=== PATIENT | male | born 1965 ===

== ENCOUNTER 2022-03-18 08:07 | Observation (INO) ==
[2022-03-18] MEDS ORDERED: MoRPHine SULFATE 4 MG/ML 1 ML CARP\\VIAL IV STA ×2 (08:34→15:29)
[2022-03-18] MEDS ORDERED: ONDANSETRON INJ 2 MG/ML 2 ML VIAL IV STA (08:34)
--- NOTE | 2022-03-18 08:36 | Emergency Department Note ---
Impression & Plan Chest pain ADMIT ED Provider Note HPI: The patient is a 56-year-old gentleman with history of coronary artery disease, status post quadruple bypass 3 years ago at a medical facility in [place], presents the emergency department today with chief complaint of chest pain. Patient states that since about 630 last evening he had some substernal chest discomfort that waxed and waned in severity. Patient states that he had this pain throughout most of the night and was having difficulty sleeping. Patient states that he therefore presented to the emergency room this morning for further assessment. On arrival to the ED the patient is hypertensive, does complain of some substernal chest pain, he is otherwise hemodynamically stable, saturating well on room air on arrival. ROS: -Cardio: Chest pain *10 point review systems was conducted and is otherwise negative unless stated above *Outpatient medications and allergy history reviewed PE: General: Alert, NAD HEENT: Normocephalic, atraumatic Eyes: Extraocular eye movement is intact, no scleral erythema Pulmonary: Clear to auscultation bilaterally, no wheezing Cardio: Regular rate and rhythm GI: Abdomen is soft, nontender : No suprapubic tenderness MSK: No evidence of trauma or malformation of the extremities, no edema Skin: No evidence of rash Neuro: Alert, no focal deficits Psychiatric: Cooperative alarm security or surveillance monitor: - An order was placed for continuous cardiac monitoring - Patient was noted to be in sinus rhythm with rate of 75 EKG: Rate: 70 Rhythm: Normal sinus rhythm Intervals: Within normal limits ST changes: No ST elevation Time: 0814 Medical Decision Making: Shortly after arrival IV was established, lab work obtained, patient was placed on awake overnight monitor, he was given morphine and Zofran for his chest discomfort. EKG does not show any acute ischemic changes, no ST elevation, troponin results at 37, on my reassessment patient states that his chest pain is improved but he still does have some mild chest discomfort. Also states that he has some muscle spasms and pain in his lower extremities, states that this happens intermittently and is a spastic like sensation. Patient will be given some IV fluids in addition to the morphine and Zofran that he was given earlier. He was given aspirin in regards to his chest discomfort. Chest x-ray does not show any evidence of any acute process. No evidence of any widened mediastinum. Given the patient's history of ACS including coronary artery bypass, hospitalist service will be consulted for admission. We will hold off on heparin drip at this time as his pain is improved and will await repeat troponin level. Patient was given a dose of labetalol for his hypertension. Patient is in agreement to the above plan, [facility] hospitalist service was consulted for admission and the patient was admitted in stable condition. Critical care time: 35 minutes -Time spent at the bedside independent of any procedures, interpretation of diagnostic studies including EKG, arrangement of admission Diagnosis: 1. Chest pain, history of coronary artery disease 2. Elevated troponin level 3. Hypertensive urgency 4. Muscle cramps of the bilateral lower extremity Disposition: Admission Adam Streeter, Emergency Medicine Past Med/Surg History Social History Smoking Status: Never smoker Preferred Language: [place] Feels Safe at Home: Yes Results & Data (ED) Vital Signs Vital Signs - 24 hr 03/18/22 08:11 03/18/22 09:02 03/18/22 09:07 Temperature 36.5 C Temperature Source Temporal Artery Scan Pulse Rate 80 Pulse Rate from SpO2 Sensor Respiratory Rate 18 Blood Pressure 188/120 H Blood Pressure Mean 142 Pulse Oximetry 95 97 Oxygen Delivery Method Room Air Room Air Room Air Sepsis Recent Fever Within 48 Hours No Sepsis New/Unexplained Change in Mental Status No Sepsis Action Taken by Nursing No Action Required 03/18/22 09:01 03/18/22 09:01 Temperature Temperature Source Pulse Rate 88 Pulse Rate from SpO2 Sensor 87 Respiratory Rate 17 Blood Pressure 183/115 H Blood Pressure Mean 137 Pulse Oximetry 98 Oxygen Delivery Method Sepsis Recent Fever Within 48 Hours Sepsis New/Unexplained Change in Mental Status Sepsis Action Taken by Nursing Laboratory Data Result diagrams: 03/18/22 08:40 03/18/22 08:40 Lab Results 03/18/22 03/18/22 03/18/22 Range/Units 08:40 08:40 08:40 WBC 6.23 (4.8-10.8) K/ul RBC 7.13 H (4.63-6.08) M/uL Hgb 15.8 (14.0-18.0) g/dl Hct 51.3 H (40.1-51.0) % MCV 71.9 L (80.0-100.0) fL MCH 22.2 L (25.0-34.0) pg MCHC 30.8 L (32.0-36.0) g/dL RDW Std Deviation 45.5 (36.4-46.3) fL RDW Coeff of Mirta 19.7 H (11.5-14.5) % Plt Count 374 (130-400) K/uL MPV 9.3 L (9.4-12.4) fL Immature Gran % (Auto) 0.3 % Neut % (Auto) 67.7 % Lymph % (Auto) 20.5 % Emmons % (Auto) 8.5 % Eos % (Auto) 1.9 % Baso % (Auto) 1.1 % Neut # (Auto) 4.21 (1.4-6.5) K/uL Lymph # (Auto) 1.28 (1.2-3.4) K/uL Emmons # (Auto) 0.53 (0.24-0.82) K/uL Eos # (Auto) 0.12 (0-0.50) K/uL Baso # (Auto) 0.07 (0-0.2) K/uL Immature Gran # (Auto) 0.02 (0.00-0.02) K/uL PT 12.8 H (9.0-12.0) Seconds INR 1.2 H (0.9-1.1) APTT 26.2 (21.0-31.0) Seconds PTT Ratio 1.0 Sodium 139 (136-145) mmol/L Potassium 5.0 (3.5-5.1) mmol/L Chloride 103 (98-107) mmol/L Carbon Dioxide 28 (21-32) mmol/L Anion Gap 8 (3-11) BUN 29 H (6-23) mg/dl Creatinine 1.36 (0.6-1.4) mg/dl Est Cr Clr Drug Dosing 58.7 ml/min Est GFR ( Amer) 66.9 ml/min Est GFR (Non-Af Amer) 57.8 ml/min BUN/Creatinine Ratio 21.3 H (10-20) Glucose 76 (70-99(Fasting)) mg/dl Calcium 9.3 (8.5-10.1) mg/dl Total Bilirubin 0.9 (0.2-1.0) mg/dl AST 44 H (13-39) U/L ALT 29 (7-52) U/L Alkaline Phosphatase 58 (34-104) U/L Troponin I High Sens 37.7 H (0-20) pg/ml Total Protein 6.7 (6.0-8.3) gm/dl Albumin 3.7 (3.4-5.0) gm/dl Globulin 3.0 (2.5-4.0) gm/dl Albumin/Globulin Ratio 1.2 (0.9-2) Lipase 183 H (11-82) U/L Administered Medications Discontinued Medications Aspirin (Aspirin Chew 324 Mg) 324 mg PO NOW STA Stop: 03/18/22 09:31 Last Admin: 03/18/22 09:34 Dose: 324 mg Documented By: DANIEL Labetalol HCl (Labetalol Hcl Iv 5 Mg/Ml 20ml) 10 mg IV NOW STA Stop: 03/18/22 09:24 Last Admin: 03/18/22 09:28 Dose: 10 mg Documented By: DANIEL Co-signed By: FAISAL Morphine Sulfate (Morphine Sulfate 4 Mg/Ml 1 Ml Carp\Vial) 4 mg IV NOW STA Stop: 03/18/22 08:35 Last Admin: 03/18/22 08:45 Dose: 4 mg Documented By: DANIEL Ondansetron HCl (Ondansetron Inj 2 Mg/Ml 2 Ml Vial) 4 mg IV NOW STA Stop: 03/18/22 08:35 Last Admin: 03/18/22 08:45 Dose: 4 mg Documented By: DANIEL Imaging Data Radiologist's Impression: Chest X-Ray 03/18/22 08:22 XR chest 1V portable CLINICAL HISTORY: Atypical chest pain. Shortness of breath. COMPARISON STUDY: No previous studies for comparison. FINDINGS: Degenerative changes of both shoulders are incidentally noted. There are median sternotomy wires. Mild cardiomegaly is noted without evidence for pu lmonary edema. There is no pneumothorax or pleural effusion. No consolidation to suggest pneumonia. Nodular densities which project over the lower lungs could reflect nipple shadows. IMPRESSION: No acute cardiopulmonary findings. ACT 112: Negative or not required by law. Electronically signed by: Yomi Acosta M.D. 03/18/2022 8:45 AM Discharge Plan Visit Data Chief Complaint: Chest Pain Stated Complaint: CHEST PAIN, TIGHTNESS IN ARM ED Provider: Adam Streeter Discharge Problem: Chest pain Patient Disposition: Admitted As Inpatient Forms Stand Alone Forms: My [facility] Referrals Referrals: PCP,NO [Primary Care Provider] -
--- NOTE | 2022-03-18 08:46 | XRay Report ---
XR chest 1V portable CLINICAL HISTORY: Atypical chest pain. Shortness of breath. COMPARISON STUDY: No previous studies for comparison. FINDINGS: Degenerative changes of both shoulders are incidentally noted. There are median sternotomy wires. Mild cardiomegaly is noted without evidence for pulmonary edema. There is no pneumothorax or p leural effusion. No consolidation to suggest pneumonia. Nodular densities which project over the lowe r lungs could reflect nipple shadows. IMPRESSION: No acute cardiopulmonary findings. ACT 112: Negative or not required by law. Electronically signed by: Yomi Acosta M.D. 03/18/2022 8:45 AM
[2022-03-18 08:47] LABS: Basophils # (auto) 0.07 K/uL (0-0.2); Basophils % (auto) 1.1 %; Eosinophils # (auto) 0.12 K/uL (0-0.50); Eosinophils % (auto) 1.9 %; Hematocrit (blood only) 51.3 % (40.1-51.0); Hemoglobin 15.8 g/dl (14.0-18.0); Immature Granulocytes # (auto) 0.02 K/uL (0.00-0.02); Immature Granulocytes % (auto) 0.3 %; Lymphocytes # (auto) 1.28 K/uL (1.2-3.4); Lymphocytes % (auto) 20.5 %; Mean Corpuscular Hemoglobin 22.2 pg (25.0-34.0); Mean Corpuscular Hgb Conc 30.8 g/dL (32.0-36.0); Mean Corpuscular Volume 71.9 fL (80.0-100.0); Mean Platelet Volume 9.3 fL (9.4-12.4); Monocytes # (auto) 0.53 K/uL (0.24-0.82); Monocytes % (auto) 8.5 %; Neutrophils # (auto) 4.21 K/uL (1.4-6.5); Neutrophils % (auto) 67.7 %; Platelet Count 374 K/uL (130-400); RDW Coefficient of Variation 19.7 % (11.5-14.5); RDW Standard Deviation 45.5 fL (36.4-46.3); Red Blood Count 7.13 M/uL (4.63-6.08); White Blood Count 6.23 K/ul (4.8-10.8)
[2022-03-18 08:58] LABS: INR 1.2 (0.9-1.1); Partial Thromboplastin Time 26.2 Seconds (21.0-31.0); Prothrombin Time 12.8 Seconds (9.0-12.0)
[2022-03-18 09:19] LABS: Troponin I High Sensitivity 37.7 pg/ml (0-20)
[2022-03-18] MEDS ORDERED: LABETALOL HCL IV 5 MG/ML 20ML IV STA ×2 (09:23→12:04)
[2022-03-18 09:29] LABS: Albumin Globulin Ratio 1.2 (0.9-2); Albumin Level 3.7 gm/dl (3.4-5.0); BUN Creatinine Ratio 21.3 (10-20); Bilirubin,Total 0.9 mg/dl (0.2-1.0); Calcium 9.3 mg/dl (8.5-10.1); Creatinine Clr Calc Pharmacy 58.7 ml/min; Est GFR (African American) 66.9 ml/min; Est GFR (Non-African American) 57.8 ml/min; Total Protein 6.7 gm/dl (6.0-8.3)
[2022-03-18] MEDS ORDERED: ASPIRIN CHEW 324 MG PO STA (09:30)
--- NOTE | 2022-03-18 10:46 | History & Physical Report ---
Date of Service March 18, 2022 Assessment & Plan (1) Chest pain: Plan: Patient presents with chest pressure ongoing for 17 hours at this time. He is currently without pressure. This changes with position and improves with moving around- which would argue against angina but again we are without comparison of ECG or ECHO. DDX: Cardiac Angina vs. non-cardiac atypical vs. luis/myocarditis vs. pericardial effusion vs. GI - ECHO with no comparison to compare to - with JUANPABLO MCCABE- will attempt to get records from his PCP/CT surgeon for better comparison - ECG with no comparison but possible SC depression - CK, CRP, ESR, HScTNI - 37 down to 31 - Pain free at this time - BP could use some adjustment- will give another dose of Labetalol now - He is unsure of any of his doses of medications- will increase Atorvastatin to 40mg - Cardiology consulted- appreciate their input [facility] is Dr. Mcknight -[phone]- expecting fax with last echo results and history. (2) CAD (coronary artery disease): Plan: As above HX stent and 3V CABG done in [place] (3) HTN (hypertension): Plan: Improving following Labetolol dose and likely some stress influence - currently 133/95 will follow - Transition his benazapril to equivalent enalaprilat dose - He is unsure if he is taking combo pill with HCTZ- read medications on phone did not mention HCTZ combo - he has some evidence of volume contraction on his labs- so would recommend just NIEL component - LR x1 liter (4) HLD (hyperlipidemia): Plan: As above- increase Atrovastatin to 40mg daily (5) GERD (gastroesophageal reflux disease): Plan: Continue Pantoprazole (6) CKD (chronic kidney disease): Plan: Unsure of his baseline - PORTABLE PINCH RIVETER at 1.3 with GFR 58 - follow - avoid further nephrotoxic medications - Continue NEIL - Replete intravascular volume (7) Elevated LFTs: Plan: mild elevation to his AST and INR again unsure of his baseline- his lipase is 183 which is likey related to his intravascular volume - will provide hydration as above follow in AM - rest of biliary labs are normal - CK pending History of Present Illness Primary Care Provider: NO PCP 56 YOM with medical history of: CAD, Stent, 3V CABG 2019, HTN, HLD. Patient comes to the EMD today for complaints of chest pressure. The patient states that this occurred around 1800 last evening following eating, but was not like a reflux or burning pain. The pain was "boxlike" around his chest and into his upper abdomen with some bloating. This pain got better if he walked around and moved around, and got worse when he would try to lie flat. Patient also states that this is associated with "legs and arm tightening like spasms". He did note that it got better with changing positions leaning forward. He states that when he had his heart attack his pain was all in his neck. He did not have this. He attempted to get up earlier this morning and took his medications at 0200 to see if this would help. He felt a little better and tried to go to work this morning. 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 In the EMD the patient was given 4mg of Morphine, Labetalol for his Blood pressure, and 324mg aspirin. He had an ECG done, and routine blood work to include a HScTNI as well as CXR. 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 He brought his medications with him and has not missed any doses. His HScTNI was elevated to 37 and ECG we have no comparison, but is without ST elevation. Will add on HScTNI now, obtain ECHO now, add on CRP, ESR, CK. Patient COVID test on admisison is: NEGATIVE Allergies Allergy/AdvReac Type Severity Reaction Status Date / Time No Known Allergies Allergy Unverified 03/18/22 11:29 Home Medications Medication Instructions Recorded Confirmed Type aspirin 81 mg tablet,delayed 81 mg PO DAILY 03/18/22 03/18/22 History release atorvastatin 10 mg tablet 10 mg PO DAILY 03/18/22 03/18/22 History benazepril 20 mg tablet 20 mg PO DAILY 03/18/22 03/18/22 History carvedilol 6.25 mg tablet 6.25 mg PO DAILY 03/18/22 03/18/22 History pantoprazole 40 mg tablet,delayed 40 mg PO DAILY 03/18/22 03/18/22 History release zolpidem 10 mg tablet 10 mg PO HS 03/18/22 03/18/22 History Past Med/Surg History Medical History (Updated 03/18/22 @ 16:04 by Petar Aquino MD) CAD (coronary artery disease) GERD (gastroesophageal reflux disease) HLD (hyperlipidemia) HTN (hypertension) Myocardial infarct Surgical History (Updated 03/18/22 @ 16:04 by Petar Aquino MD) S/P CABG x 3 (2019) Family History Other Coronary heart disease Depression Heart disease Social History Smoking Status: Never smoker Preferred Language: Vietnamese Feels Safe at Home: Yes Review of Systems Review of Systems: REVIEW OF SYSTEMS: Constitutional: No fever, sweats or chills Eyes: No diplopia, no worsening or blurred vision ENT: normal hearing, no trouble swallowing Respiratory: No cough, sputum, dyspnea at rest or on exertion Cardiovascular: (+) chest pain, tightness, NO palpitations Abdomen: (+) bloating, No pain, nausea, vomiting, diarrhea or constipation Musculoskeletal: (+) chronic shoulder pain, No joint pain, calf pain, swelling Neurologic: No weakness, numbness/tingling, or balance problems Psychiatric: (+) mood disturbance Skin: No rash or itch Physical Exam Physical Exam: PHYSICAL EXAM: General: awake, alert, no apparent distress Head: Normocephalic, atraumatic ENT: PERRL, EOMI, no pharyngeal exudate, mucous membranes moist Neuro: AAO x 3, speech clear and appropriate, strength intact bilaterally 5/5, sensation intact and equal all extremities and dermatomes, no pronator drift Chest: equal rise and fall of the chest, no accessory muscle use, no heaves or thrills, Clear to auscultation, on room air, Cardiac: Regular rate and rhythm, telemetry reviewed-NSR, skin warm dry, cap refill <3 seconds, peripheral pulses +2 no JVD, Grade II systolic murmur, no edema GI: NABS x 4 quadrants, soft, nontender to palpation, no rebound, guarding or tenderness : Spontaneously voiding, no pain, no CVA tenderness, Extremities: Normal inspection, no peripheral edema or erythema, calfs nontender to palpation Psych: Normal mood and affect Skin: no rash or erythema Results & Data Results & Data ([facility]) Vital Signs (Past 12 Hours) Vital Signs Temp Pulse Resp BP Pulse Ox O2 Del Method 03/18/22 09:48 133/95 03/18/22 09:48 69 16 95 03/18/22 09:01 183/115 H 03/18/22 09:01 88 17 98 03/18/22 09:07 97 Room Air 03/18/22 09:02 Room Air 03/18/22 08:11 36.5 C 80 18 188/120 H 95 Room Air Laboratory Results Abnormal lab results 03/18/22 03/18/22 03/18/22 Range/Units 08:40 08:40 08:40 RBC 7.13 H (4.63-6.08) M/uL Hct 51.3 H (40.1-51.0) % MCV 71.9 L (80.0-100.0) fL MCH 22.2 L (25.0-34.0) pg MCHC 30.8 L (32.0-36.0) g/dL RDW Coeff of Mirta 19.7 H (11.5-14.5) % MPV 9.3 L (9.4-12.4) fL PT 12.8 H (9.0-12.0) Seconds INR 1.2 H (0.9-1.1) BUN 29 H (6-23) mg/dl BUN/Creatinine Ratio 21.3 H (10-20) AST 44 H (13-39) U/L Troponin I High Sens 37.7 H (0-20) pg/ml Lipase 183 H (11-82) U/L Diagnostic Findings Chest X-Ray 03/18/22 08:22 XR chest 1V portable CLINICAL HISTORY: Atypical chest pain. Shortness of breath. COMPARISON STUDY: No previous studies for comparison. FINDINGS: Degenerative changes of both shoulders are incidentally noted. There are median sternotomy wires. Mild cardiomegaly is noted without evidence for pulmonary edema. There is no pneumothorax or pleural effusion. No consolidation to suggest pneumonia. Nodular densities which project over the lower lungs could reflect nipple shadows. IMPRESSION: No acute cardiopulmonary findings. ACT 112: Negative or not required by law. Electronically signed by: Yomi Acosta M.D. 03/18/2022 8:45 AM Medications Administered Active Medications Lactated Ringer's (Lr) 1,000 mls @ 100 mls/hr IV .Q10H ONE Stop: 03/18/22 20:48 ECG Additional Comments: Normal sinus rhythm Right axis deviation Incomplete right bundle branch block Inferior infarct , age undetermined Abnormal ECG No previous ECGs available Code Status & VTE Plan Code Status CODE: FULL VTE: SCDS, Heparin 5000 units sub q q12 VTE Prophylaxis Plan VTE Prophylaxis will be ordered: Yes Supervising Physician Co-Signing Physician Notes I supervised WILL Franklin on this admission. I interviewed and examined the patient independently of him. The plan is as written in his note except for any following changes/exceptions: None 56yo M w/ hx of CAD who presents with chest pain overnight. Also notes cramps that where ongoing throughout the night. Echo done today with some progression of his aortic stenosis. Seen by cardiology without concern for possible ACS. Continue home meds, will start heparin gtt. Consideration for LHC in next 24 hours. PG Care Time/CCT Total # of Minutes Spent Total Time Spent with Patient: Total time spent is greater than 50% in coordination of care (as documented) at patient's floor/unit and/or counseling patient: Coding Level of Care Code 55664 Initial Inpt Care Lvl 3 Diagnoses Chest pain R07.9 Chest pain type: unspecified CAD (coronary artery disease) I25.10 HTN (hypertension) I10 HLD (hyperlipidemia) E78.5 GERD (gastroesophageal reflux disease) K21.9 CKD (chronic kidney disease) N18.9 Elevated LFTs R79.89 (1) Chest pain Chest pain type: unspecified Qualified Code(s): R07.9 - Chest pain, unspecified
[2022-03-18] MEDS ORDERED: LACTATED RINGER'S 1,000 ML IV ONE (11:00)
[2022-03-18 11:40] LABS: C Reactive Protein < 0.50 mg/dl (0-0.5); Creatine Kinase 788 U/L (30-223)
--- NOTE | 2022-03-18 12:04 | XCELERA ---
[id number]
[2022-03-18] MEDS ORDERED: ONDANSETRON INJ 2 MG/ML 2 ML VIAL IV PRN (13:11)
[2022-03-18] MEDS ORDERED: ACETAMINOPHEN 325 MG TAB PO PRN (13:11)
[2022-03-18] MEDS ORDERED: LABETALOL HCL IV 5 MG/ML 20ML IV ONE (14:36)
[2022-03-18] MEDS ORDERED: OPTIRAY 320 125ml IV ONE (15:49)
--- NOTE | 2022-03-18 16:05 | Cardiology Consultation ---
Date of Consultation March 18, 2022 Assessment & Plan (1) Chest pain: (2) CAD (coronary artery disease): (3) S/P CABG x 3: (4) Moderate to severe aortic stenosis: (5) HTN (hypertension): (6) HLD (hyperlipidemia): Plan 56-year-old man with prior infarct and subsequent CABG 2019 presents now with nearly 24 hours of waxing and waning chest discomfort, borderline but flat troponin curve, and nonspecific but non-dynamic ECG findings. Given his dilated aortic root he was sent for urgent chest CT to rule out dissection. Variable BP with intermittent hypertensive spikes, agree with labetalol IV to manage hypertension. Although there may be some positional component to his discomfort, we had him sit up in the ER and he felt no change, he states only when he stands and walks around he feels better. He does have moderate to severe but unlikely critical aortic stenosis, doubt thi s is causing his ongoing symptoms at rest. 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 At this point, etiology of his discomfort remains unclear, but given his cardiac history and ongoing symptoms would have low threshold to proceed with cardiac catheterization. Continue with IV morphine for pain management and serial troponins. Continue aspirin, statin, carvedilol, enalapril. Since dissection was ruled out and he has ongoing symptoms, would recommend IV heparin for possible thrombotic component of a potential acute coronary syndrome. Addendum: Chest CT negative for dissection, he does have extensive coronary and aortic calcifications. Some past records became available with prior ECG similar to current study. Echocardiogram 2018 showed severe LVH but only "aortic sclerosis", and inferior wall abnormality was present then, LV systolic function was normal. History of Present Illness Reason for Consultation: Chest pain/abnormal echo Requesting Physician: Gt Krueger MD Attending Physician: Gt Krueger MD History of Present Illness 56-year-old man with history of coronary artery disease, prior myocardial infarction followed 1 week later by multivessel CABG in 2019, who noted onset of chest discomfort last evening at 6 PM and presents to the emergency department where hs-troponin is borderline elevated (37.7, repeat 31.0), ECG shows old inferior infarct with nonspecific T wave abnormalities but no obvious ST deviation, and echocardiogram shows normal systolic function, inferior wall akinesis, severe LVH with diastolic dysfunction, moderate aortic root dilation with moderate to severe aortic stenosis and mild aortic regurgitation. He notes that he had been feeling a bit off over the past 2 weeks in a nonspecific way, first noted onset of chest pressure last evening at 6 PM. Experienced a kind of general thoracic "pressure" sensation, he felt somewhat b ana when he got up and walked around. Although there was some suggestion he felt better sitting upright, he notes that it was really only when he stood and walked that his discomfort improved. Moderate severity with waxing and waning but never completely resolving discomfort since the onset last evening. He did feel significantly better after 4 mg IV morphine in the emergency department. However, at the time of our evaluation (3:30 PM) he noted recurrence of moderate discomfort with associated diaphoresis and restlessness. Repeat ECG at that time showed no change compared with the study from this morning. He was given additional morphine and promptly sent for chest CT to exclude aortic dissection, given his moderately dilated aortic root in the absence of ECG findings to indicate myocardial ischemia. He was hemodynamically stable with a normotensive BP and a nontachycardic heart rate at the time of our evaluation. Further records and details of his past cardiac history were not immediately available, as he is from [place] and was visiting the area for construction work. Allergies Allergy/AdvReac Type Severity Reaction Status Date / Time No Known Allergies Allergy Unverified 03/18/22 11:29 Home Medications Medication Instructions Recorded Confirmed Type aspirin 81 mg tablet,delayed 81 mg PO DAILY 03/18/22 03/18/22 History release atorvastatin 10 mg tablet 10 mg PO DAILY 03/18/22 03/18/22 History benazepril 20 mg tablet 20 mg PO DAILY 03/18/22 03/18/22 History carvedilol 6.25 mg tablet 6.25 mg PO DAILY 03/18/22 03/18/22 History pantoprazole 40 mg tablet,delayed 40 mg PO DAILY 03/18/22 03/18/22 History release zolpidem 10 mg tablet 10 mg PO HS 03/18/22 03/18/22 History Patient History Medical History (Updated 03/18/22 @ 16:04 by Petar Aquino MD) CAD (coronary artery disease) GERD (gastroesophageal reflux disease) HLD (hyperlipidemia) HTN (hypertension) Myocardial infarct Surgical History (Updated 03/18/22 @ 16:04 by Petar Aquino MD) S/P CABG x 3 (2019) Family History Other Coronary heart disease Depression Heart disease Social History Smoking Status: Never smoker Preferred Language: [place] Feels Safe at Home: Yes Physical Exam Physical Exam: MCOT appearing middle-aged white male appears somewhat uncomfortable but not severely distressed. Normotensive BP (133/99 mmHg). Pulse 78 bpm and regular. Respirations 16 and unlabored. Skin: no ecchymoses or generalized lesions. Not obviously diaphoretic. HEENT: unremarkable. Neck: Jugular venous pulse at the clavicle, no obvious transmitted murmur or carotid bruits. Lungs: clear bilaterally. No wheezing or crackles. No accessory muscle use.. Cardiac: regular rhythm, 3/6 crescendo systolic murmur right upper sternal mir rder radiating to suprasternal notch, left sternal border, and axilla. No obvious diastolic murmur or gallop. Abdomen: benign. Extremities: no edema, brisk radial and posterior tibial pulses. Neurologic: normal affect and conversation, nonfocal. Results & Data ([facility]) Laboratory Results Normal CBC. INR 1.2, normal PTT. Normal electrolytes, BUN 29, creatinine 1.36. AST minimally elevated at 44, ALT normal. CK7 188. High-sensitivity troponin 37.7 with repeat an hour or so later 31.0. COVID test negative. Diagnostic Findings Troponin, ECG, and echocardiogram as noted in HPI. Chest x-ray unremarkable. PG Care Time/CCT Total # of Minutes Spent Total Time Spent with Patient: Total time spent is greater than 50% in coordination of care (as documented) at patient's floor/unit and/or counseling patient: Coding Level of Care Code 78289 Inpt Consult Level 4 Diagnoses Chest pain R07.9 Chest pain type: unspecified CAD (coronary artery disease) I25.10 S/P CABG x 3 Z95.1 Moderate to severe aortic stenosis I35.0 HTN (hypertension) I10 HLD (hyperlipidemia) E78.5 (1) Chest pain Chest pain type: unspecified Qualified Code(s): R07.9 - Chest pain, unspecified
--- NOTE | 2022-03-18 16:15 | CT Scan Report ---
CT angio chest dissec wo/w con CLINICAL HISTORY: Chest pain. Evaluate for Thoracic aortic dissection COMPARISON STUDY: Portable chest from 03/18/2022 CT DOSE: 1281.31 mGy.cm TECHNIQUE: CT Angio of the chest was performed.followed by image post processing with coronal, and s agittal MIP reformats. Contrast Volume: Optiray 320, 121 ml FINDINGS: Vasculature: There is fusiform aneurysmal dilatation of the ascending thoracic aorta measuring 4.4 cm in greatest AP diameter. This compares to 2.7 cm of the descending thoracic aorta same level. There is no evidence for saccular aneurysm, dissection or leakage. There is mild atherosclerotic calcificat ion of the aortic arch and origin of the great vessels. The pulmonary vasculature is not well opacified with contrast. Airway: The airway is clear. No endobronchial lesion is identified. Lungs: There is minimal atelectasis and scarring at the right lung base which does have a nodular mani earance. The nodular portion measures approximately 9 mm as seen on image 266 of series 4. Follow-up CT in 3 months is recommended for further evaluation. The lungs are otherwise clear of acute alveolar opacities, air bronchograms or pulmonary nodules. Pleura: There is no evidence for pleural effusion. There is no evidence for pneumothorax. Mediastinum: There is no evidence for pathologic adenopathy. Heart size is mildly enlarged status pos t previous cardiothoracic surgery. Extensive coronary artery calcification is present . There is no e vidence for pericardial effusion. Upper abdomen: The adrenal glands are normal bilaterally. The stomach is grossly distended with liqui d and food stuff. Osseous structures: There is no acute osseous pathology. Impression: 1. Fusiform aneurysmal dilatation of the ascending thoracic aorta with no evidence for saccular aneur ysm, dissection or leakage. 2. Mild cardiomegaly status post previous cardiothoracic surgery with extensive coronary artery calci fication. 3. Nodular atelectasis/scarring at the right lung base. Follow-up CT in 3 months is recommended for f urther evaluation. The referring clinician will be called/faxed with these results. ACT 112: Positive. There are findings on this exam that require communication between the performing entity and the patient following Patient Test Result Information Act ([place] Act 112) guidelines. Electronically signed by: Dontrell Penny M.D. 03/18/2022 4:14 PM
[2022-03-18] MEDS ORDERED: Heparin IV Adult Wt-Based Standard WITH Bolus Protocol IV SCH (16:53)
[2022-03-18] MEDS: HEPARIN SODIUM/DEXTROSE 25,000 UNITS/500 ML BAG IV SCH (17:28)
[2022-03-18] MEDS ORDERED: HEPARIN SOD (PORCINE) 1000 UNIT/ML IV ONE (17:30)
--- NOTE | 2022-03-18 17:39 | Electrocardiogram Report ---
Test Reason : Blood Pressure : / mmHG Vent. Rate : 070 BPM Atrial Rate : 070 BPM P-R Int : 160 ms QRS Dur : 118 ms QT Int : 376 ms P-R-T Axes : 059 124 018 degrees QTc Int : 406 ms Normal sinus rhythm Right axis deviation Incomplete right bundle branch block Old Inferior infarct Minor ST elevation in Inferior leads Nonspecific T wave abnormality Anterolateral leads Abnormal ECG No previous ECGs available Confirmed by Petar Aquino ([id number]) on 03/18/2022 5:38:39 PM Referred By: REFERRED SELF Confirmed By:Petar Aquino
[2022-03-18] MEDS ORDERED: MELATONIN 3 MG TAB PO PRN (19:52)
--- NOTE | 2022-03-18 19:54 | Communication Note ---
Date of Service: March 18, 2022 Night resident note 19:45- RN notified me that patient developed lightheadedness, dizziness, and facial numbness which lasted about a half hour before resolving. Patient reports symptoms like this have not happened before. BP 144/96, HR 68, RR 18, afebrile, oxygen sat 97% on RA. Ordered a CT head. 21:20- RN notified me that patient developed 7/10 chest pain/pressure and occipital head numbness. Patient's history of CAD s/p CABG x3 (in 2019) was noted. BP 162/114, HR 56, RR 16, spO2 96% on RA, afebrile. Has not yet gone down for the CT head. Stat EKG and and hsTroponin ordered. EKG: NSR, no overt sign of ischemic change. Ordered morphine 2mg IV per cardiology note recommendation. 21:40- CP waxing and waning, currently 3/10. VSS. RN performed an NIH scale which was zero. hsTroponin still pending. 03/19 @ 00:00- CT head statrad read came back negative for acute intracranial pathology. hsTroponin came back trivially elevated beyond last value. CP improved. Continue monitoring. I did was not notified about any further events for the remainder of the overnight shift. Lai Adams, PGY-3 Resident Activity Tracking Resident Involvement: Resident Care Provided and Rejoiner Coverage Note Care Provided: Adult Hospital Medicine
[2022-03-18] MEDS ORDERED: HEPARIN SOD 5,000 UNIT/0.5 ML VIAL SQ SCH (21:00)
[2022-03-18] MEDS: carvediloL 6.25 MG TAB PO SCH (21:10)
[2022-03-18] MEDS ORDERED: MoRPHine SULFATE 2 MG/ML CARP IV STA (22:09)
[2022-03-18] MEDS: ZOLPIDEM TARTRATE 10 MG TAB PO SCH (23:22)
[2022-03-19 00:03] LABS: Partial Thromboplastin Ratio 1.3
[2022-03-19] MEDS ORDERED: HEPARIN SOD (PORCINE) 1000 UNIT/ML IV ONE (02:30)
--- NOTE | 2022-03-19 07:00 | CT Scan Report ---
CT head/brain wo con CLINICAL HISTORY: 56 years-old Male with stroke-like symptoms. Acute strokelike symptoms TECHNIQUE: Multiple axial CT images of the head were obtained without contrast. A dose lowering tech nique was utilized adhering to the principles of ALARA. CT DOSE: 537.48 mGy.cm COMPARISON: None. FINDINGS: No acute intracranial hemorrhage, midline shift, intracranial mass, hydrocephalus, territorial ischem ia or abnormal extra-axial collection. Minimal white matter hypodensities may represent chronic micro vascular ischemic disease. The calvarium is intact. The paranasal sinuses, mastoid air cells, and middle ear cavities are clear . IMPRESSION: No acute intracranial abnormality. ACT 112: Negative or not required by law. The above report was generated using voice recognition software. It may contain grammatical, syntax o r spelling errors. Electronically signed by: Herson Wong M.D. 03/19/2022 6:58 AM
[2022-03-19 09:14] LABS: Basophils # (auto) 0.06 K/uL (0-0.2); Eosinophils # (auto) 0.16 K/uL (0-0.50); Eosinophils % (auto) 2.7 %; Hemoglobin 15.7 g/dl (14.0-18.0); Immature Granulocytes # (auto) 0.01 K/uL (0.00-0.02); Immature Granulocytes % (auto) 0.2 %; Lymphocytes # (auto) 1.22 K/uL (1.2-3.4); Lymphocytes % (auto) 20.4 %; Mean Corpuscular Hemoglobin 21.9 pg (25.0-34.0); Mean Corpuscular Hgb Conc 30.2 g/dL (32.0-36.0); Mean Corpuscular Volume 72.6 fL (80.0-100.0); Mean Platelet Volume 9.6 fL (9.4-12.4); Monocytes # (auto) 0.64 K/uL (0.24-0.82); Monocytes % (auto) 10.7 %; Neutrophils # (auto) 3.89 K/uL (1.4-6.5); Platelet Count 327 K/uL (130-400); RDW Standard Deviation 46.7 fL (36.4-46.3); Red Blood Count 7.16 M/uL (4.63-6.08); White Blood Count 5.98 K/ul (4.8-10.8)
[2022-03-19 09:43] LABS: BUN Creatinine Ratio 17.4 (10-20); Calcium 9.1 mg/dl (8.5-10.1); Chol HDL Ratio 8.4 (0-5); Creatinine Clr Calc Pharmacy 55.4 ml/min; Est GFR (African American) 62.5 ml/min; Est GFR (Non-African American) 53.9 ml/min; Magnesium 1.6 mg/dl (1.7-2.4); Potassium 4.7 mmol/L (3.5-5.1)
[2022-03-19] MEDS: PANTOprazole 40 MG TAB PO SCH (09:44)
[2022-03-19] MEDS: ATORVASTATIN 40 MG TAB PO SCH (09:44)
[2022-03-19] MEDS: ASPIRIN 81 MG ECTAB PO SCH (09:44)
[2022-03-19] MEDS: carvediloL 6.25 MG TAB PO SCH ×2 (09:44→20:07)
[2022-03-19] MEDS: ENALAPRIL MALEATE 10 MG TAB PO SCH (09:44)
[2022-03-19] MEDS: FLUTICASONE PROPIONATE NA SPR 16 GM BTL NAE SCH (09:45)
[2022-03-19 11:09] LABS: Troponin I High Sensitivity 22.7 pg/ml (0-20)
[2022-03-19] MEDS ORDERED: LIDOCAINE 1% LOCAL 20 ML VIAL ONE (11:31)
[2022-03-19] MEDS ORDERED: niCARdipine HCL INJ 2.5 MG/ML 10 ML AMP ONE (11:32)
[2022-03-19] MEDS ORDERED: HEPARIN (PORCINE) 1000 UNIT/ML 10 ML (CATH LAB USE ONLY) ONE (11:32)
[2022-03-19] MEDS ORDERED: fentaNYL citrate 100 MCG/2 ML VIAL ONE ×2 (11:33→13:21)
[2022-03-19] MEDS ORDERED: NITROGLYCERIN/D5W 100MCG/ML 20ML SYR ONE (11:33)
[2022-03-19] MEDS ORDERED: MIDAZOLAM HCL 1 MG/ML 2ML VIAL ONE ×2 (11:33→13:21)
--- NOTE | 2022-03-19 11:54 | Pre Anesthesia Assessment ---
Date of Service March 19, 2022 Pre Sedation Assessment Vital Signs Temp Pulse Pulse Pulse Resp BP Pulse Ox 03/19/22 11:27 70 16 127/97 98 03/19/22 08:04 98.1 F 65 18 134/92 95 03/19/22 03:39 98.2 F 57 L 18 126/86 95 03/18/22 22:16 58 L 03/18/22 22:43 97.7 F 61 16 155/101 H 96 03/18/22 21:30 97.9 F 56 L 16 162/114 H 96 03/18/22 19:11 98.2 F 68 18 144/96 H 97 03/18/22 17:57 62 03/18/22 16:35 98.4 F 76 18 158/102 H 96 03/18/22 16:12 66 17 128/98 96 03/18/22 16:04 66 16 165/139 H 94 03/18/22 14:38 78 16 133/99 95 03/18/22 13:57 80 20 172/114 H 97 03/18/22 13:57 Pulse Ox O2 Del Method O2 Del Method 03/19/22 11:27 Room Air 03/19/22 08:04 Room Air 03/19/22 03:39 Room Air 03/18/22 22:16 03/18/22 22:43 Room Air 03/18/22 21:30 Room Air 03/18/22 19:11 Room Air 03/18/22 17:57 03/18/22 16:35 Room Air 03/18/22 16:12 Room Air 03/18/22 16:04 Room Air 03/18/22 14:38 Room Air 03/18/22 13:57 Room Air 03/18/22 13:57 97 Room Air Cardiovascular RRR, no murmur, no edema Respiratory normal respiratory effort, lungs clear to auscultation Pre-Sedation Airway Assessment Smoking Status: Never smoker Hx Sleep Apnea: No Hx Difficult Intubation: No Short, Thick Neck: No Thyromental Distance: > or= 3.5 Finger Breadths Oral Cavity: + WNL Mallampati Class: II ASA: ASA3 NPO Status Date of Last Intake of Fluids: 03/18/22 Time of Last Intake of Fluids: 23:00 Date of Last Intake of Solid Food: 03/18/22 Time of Last Intake of Solid Foods: 23:00 Procedure Planning Contraindications for Sedation: none Current Medications Reviewed: Yes Notes The planned sedation has been discussed with the patient. Informed Consent was obtained. I have identified the patient, determined the appropriateness of sedation and have assessed the patient immediately prior to the procedure. All medicine(s) and interventions are by my order.
--- NOTE | 2022-03-19 13:35 | Post Anesthesia Assessment ---
Date of Service March 19, 2022 Post Sedation Assessment Vital Signs Temp Pulse Pulse Pulse Resp BP Pulse Ox 03/19/22 11:27 70 16 127/97 98 03/19/22 08:04 98.1 F 65 18 134/92 95 03/19/22 03:39 98.2 F 57 L 18 126/86 95 03/18/22 22:16 58 L 03/18/22 22:43 97.7 F 61 16 155/101 H 96 03/18/22 21:30 97.9 F 56 L 16 162/114 H 96 03/18/22 19:11 98.2 F 68 18 144/96 H 97 03/18/22 17:57 62 03/18/22 16:35 98.4 F 76 18 158/102 H 96 03/18/22 16:12 66 17 128/98 96 03/18/22 16:04 66 16 165/139 H 94 03/18/22 14:38 78 16 133/99 95 03/18/22 13:57 80 20 172/114 H 97 03/18/22 13:57 Pulse Ox O2 Del Method O2 Del Method 03/19/22 11:27 Room Air 03/19/22 08:04 Room Air 03/19/22 03:39 Room Air 03/18/22 22:16 03/18/22 22:43 Room Air 03/18/22 21:30 Room Air 03/18/22 19:11 Room Air 03/18/22 17:57 03/18/22 16:35 Room Air 03/18/22 16:12 Room Air 03/18/22 16:04 Room Air 03/18/22 14:38 Room Air 03/18/22 13:57 Room Air 03/18/22 13:57 97 Room Air Recovery Score Activity: Moves 4 extremities Respiration: Deep Breath/Cough Circulation: +/-20% PreAnes Value Consciousness: Fully Awake Oxygen Saturation: O2 needed for >90% Discharge Sedation Level of Care: Fast Track Phase II Post Sedation Plan On clinical assessment, the patient appears to have tolerated the sedation without complications. Patient is recovering as anticipated. Patient will continue to be monitored by nursing and may be discharged when sedation discharge criteria are met per below protocol. Upon Completions of procedure up to 15 minutes continue every 5 minute vital signs and the P.A.R. score; then discharge to a Phase I or Fast Track to Phase II per the following guidelines: * Discharge Patient to appropriate Phase II area if PAR is 8 or greater or return to pre- procedure baseline. The post - procedure orders will be as directed. * If PAR score is less than 8 or not return to pre-procedure baseline then patient will follow Phase I monitoring till PAR is reached for Phase II. The Phase I may be done in procedure room or may call to secure a Phase I area. * If naloxone or flumazenil are used for reversal, hold in Phase I for continued monitoring from when last reversal dose was given for a minimum of 60 minutes or longer pending the nurse and/or physician discretion of patient condition before discharge to Phase II. Please call the Sedation Physician to re-evaluate and complete post-note for discharge to Phase II area. Do NOT discharge from procedure sedation or Phase 1 until post- sedation evaluation note is complete by procedure /sedation MD Sedation Discharge Instructions to be given to the patient at discharge to home.
--- NOTE | 2022-03-19 13:43 | Post Operative Brief Note ---
Cardiology Brief Post Op Date of Surgery March 19, 2022 Pre & Post Diagnosis Coronary artery disease Procedure Coronary and bypass graft angiography Claims Service Adjustor Jasper Humphrey MD Shoe Stainer Other Spatial Scientist Estimated Blood Loss 10 Findings See Below Patent DIANA-LAD Patent SVG to OM1 Patent SVG to PDA Multivessel [place] oreilles disease Separate LAD, LCx ostium - 70% ostial LCx, 80% mid, 90% OM1 - 70% ostial LAD, calcified 60% mid, competitive distal flow. - Large D2 98% proximal stenosis - RCA not visualized. Competitive distal flow. Question if D2 is acute culprit or chronic. Wire placed across D2 but unable to pass balloon across mid LAD stenosis. Patient chest pain free and recommend medical management. If refractory symptoms at home could consider repeat attempt at PCI from groin with possible atherectomy. Anesthesia Type RN Sedation Complications none Disposition Accompanied Patient To Recovery: Yes Overlapping Procedure I was present for: the critical portions of procedure. I was immediately available: during the entire case. Back up surgeon: was not required during procedure.
[2022-03-19] MEDS ORDERED: SODIUM CHLORIDE 0.9% 1000ML 1,000 ML IV SCH (13:45)
--- NOTE | 2022-03-19 15:02 | Cardiac Catheterization ---
[facility] Data: Insurance Agency Sales Manager Cardiac Status Clinical evaluation leading to the procedure CAD Presenation: Non STEMI Anginal Classification: CCS IV Diagnostic Physicians Name: Jasper Humphrey MD Closure Device Recommendations: Medical Therapy and/or Counseling Cardiac Cath Procedure Full Procedure Date March 19, 2022 Pre-Procedure Diagnosis Pre-Procedure Diagnosis: Non STEMI AUC Score AUC Score: 7 Post-Procedure Diagnosis Post-Procedure Diagnosis: Severe CAD and Normal Intracardiac Pressures Procedure(s) Performed Procedure(s) Performed: Coronary Angiography, Left Heart Cath and Bypass Graft Angiography Station Worker Jasper Humphrey MD Physicist [employer](s) Air Conditioning Mechanic Industrial Estimated Blood Loss Estimated Blood Loss: 10 Medication(s) Medication(s): Fentanyl, Heparin, Lidocaine 1%, Nicardipine, Nitroglycerin and Versed Summary of Findings Indication: 56-year-old man with a history of coronary artery disease post prior inferior IN and eventual three-vessel CABG (DIANA to LAD, SVG to OM, SVG to PDA in 2018) admitted with persistent chest pain different than his prior angina. Borderline high-sensitivity troponin elevation. Preserved LV function on echo with inferior wall motion abnormality. Access: 6 Fr left radial artery Catheters: JR4, MPA, JL 4, EBU 3.5 guide Findings: LM -separate LAD/circumflex ostium LAD -medium caliber, 70% ostial, 50 to 60% mid at takeoff of D2. Competitive flow in mid segment. Distal vessel after DIANA anastomosis without significant disease. Medium D2 with 98% proximal stenosis and sluggish distal flow. Circumflex -medium caliber, 80% ostial stenosis, 80% mid stenosis at takeoff OM1. Distal vessel without significant disease. Medium OM1 with 90% proximal stenosis RCA -not visualized, unable to cannulate ostial stent. Competitive flow in distal RCA from vein graft. DIANA to LADwidely patent, sluggish flow SVG to OMlarge caliber vessel, widely patent, retrofills distal circumflex. SVG to PDAlarge caliber vessel, widely patent, retrofills large right PLB LVEDP -13 attempted PCI of diagonal Chronicity of diagonal stenosis unclear Left main cannulated with EBU 3.5 guide Shop Foreman 50 wire navigated across proximal D2 stenosis Unable to pass 2.0 balloon across mid LAD stenosis despite aid of guide liner Patient chest pain-free and procedure aborted. No apparent coronary complications. Arterial Closure: TR band Summary: 1. Severe multivessel coronary artery disease -70% ostial LAD, 50 to 60% mid LAD 80% ostial, 80% mid circumflex. 90% proximal OM1 RCA not well visualized 98% proximal D2 stenosis 2. Widely patent DIANA to LAD, SVG to OM, SVG to PDA 3. Normal intracardiac filling pressure 4. Unsuccessful attempt at PCI of proximal D2 due to inability to pass balloon across mid LAD stenosis. Recommendations: Patient chest pain-free and recommend medical management of CAD. Continue heparin infusion, start clopidogrel, maximize antianginal therapy If in the future when returns home has refractory angina could consider repeat attempt at PCI of diagonal likely requiring arthrectomy. Hemodynamics Rest Ao:: 96/67/80 Final Ao: 86/61/73 LV: 108/11 Recommendations Recommendations: Medical Therapy and/or Counseling Specimens Specimens: None Radiation Exposure (mGy) 3562 Contrast (mls) 100 Anesthesia Moderate [id number] Procedural Complication(s) None Disposition PCU I attest to the content of the Intraoperative Record and any orders documented therein. Any exceptions are noted below. [facility] Procedure Codes Cardiac Catheterization Procedure 1: Cardiovascular Cath Procedures: 41465 Coronaries & LHC (+/-LV) & Grafts/IM (arterial & venous) Moderate Sedation Procedure 1: Sedation/Anesthesia: 98572 Mod Sedation by the same physician;Init15 Min Child Age 5 & Up Procedure 2: Sedation/Anesthesia: 00124 Mod Sedation by the same physician; Ea [id number] Minutes Angioplasty Procedure 1: Cardiovascular Angioplasty Procedures: 12569 PTCA; Single mafor coronary artery or branch RC LC LD PG Care Time/CCT Total # of Minutes Spent Total Time Spent with Patient: Total time spent is greater than 50% in coordination of care (as documented) at patient's floor/unit and/or counseling patient:
[2022-03-19] MEDS: HEPARIN SODIUM/DEXTROSE 25,000 UNITS/500 ML BAG IV SCH ×2 (15:32→21:09)
--- NOTE | 2022-03-19 20:52 | Communication Note ---
Date of Service: March 19, 2022 9pm: Patient upset because he had been unaware until later in the day that stent placement was unsuccessful. He is questioning why he has to stay the night. I explained that after cardiac caths, we monitor patient for bleeding overnight in the PCU. If patient chooses to leave, it would be via AMA. He agrees to stay. He refuses the brain MRI. 11pm: Patient is asking for 20mg Ambien; states he takes that dose at home. I haveeclined because 10mg is max recommended dose and per med rec, his home dose is 10mg. [place].
--- NOTE | 2022-03-19 20:53 | Electrocardiogram Report ---
Test Reason : Blood Pressure : / mmHG Vent. Rate : 068 BPM Atrial Rate : 068 BPM P-R Int : 158 ms QRS Dur : 108 ms QT Int : 372 ms P-R-T Axes : 039 235 003 degrees QTc Int : 395 ms Normal sinus rhythm Possible Left atrial enlargement Right superior axis deviation Incomplete right bundle branch block Inferior infarct (cited on or before 18-MAR-2022) Anterior infarct , age undetermined Abnormal ECG When compared with ECG of 18-MAR-2022 08:14, Anterior infarct is now Present Confirmed by Zaid Herrera ([id number]) on 03/19/2022 8:53:09 PM Referred By: REFERRED SELF Confirmed By:Zaid Herrera
--- NOTE | 2022-03-19 20:59 | Hospitalist Progress Note ---
Date of Service March 19, 2022 Assessment & Plan (1) Chest pain: Plan: Patient presents with chest pressure ongoing for 17 hours at this time. He is currently without pressure. This changes with position and improves with moving around- which would argue against angina but again we are without comparison of ECG or ECHO. DDX: Cardiac Angina vs. non-cardiac atypical vs. luis/myocarditis vs. pericardial effusion vs. GI - ECHO with no comparison to compare to - with JUANPABLO MCCABE- will attempt to get records from his PCP/CT surgeon for better comparison - ECG with no comparison but possible [place] depression - CK, CRP, ESR, HScTNI - 37 down to 31 - Pain free at this time - BP could use some adjustment- will give another dose of Labetalol now - He is unsure of any of his doses of medications- will increase Atorvastatin to 40mg - Cardiology consulted- appreciate their input [employer] is Dr. Mcknight -[phone]- expecting fax with last echo results and history. Cardiac cath was completed. Stent placement was unsuccessful. Summary: 1. Severe multivessel coronary artery disease -70% ostial LAD, 50 to 60% mid LAD 80% ostial, 80% mid circumflex. 90% proximal OM1 RCA not well visualized 98% proximal D2 stenosis 2. Widely patent DIANA to LAD, SVG to OM, SVG to PDA 3. Normal intracardiac filling pressure 4. Unsuccessful attempt at PCI of proximal D2 due to inability to pass balloon across mid LAD stenosis. Recommendations: Patient chest pain-free and recommend medical management of CAD. Continue heparin infusion, start clopidogrel, maximize antianginal therapy Patient is refusing MRI to assess dizziness. (2) CAD (coronary artery disease): Plan: As above HX stent and 3V CABG done in [place] (3) HTN (hypertension): Plan: Improving following Labetolol dose and likely some stress influence - currently 133/95 will follow - Transition his benazapril to equivalent enalaprilat dose - He is unsure if he is taking combo pill with HCTZ- read medications on phone did not mention HCTZ combo - he has some evidence of volume contraction on his labs- so would recommend just NEIL component - LR x1 liter (4) HLD (hyperlipidemia): Plan: As above- increase Atrovastatin to 40mg daily (5) GERD (gastroesophageal reflux disease): Plan: Continue Pantoprazole (6) CKD (chronic kidney disease): Plan: Unsure of his baseline - [employer] at 1.3 with GFR 58 - follow - avoid further nephrotoxic medications - Continue NEIL - Replete intravascular volume (7) Elevated LFTs: Plan: mild elevation to his AST and INR again unsure of his baseline- his lipase is 183 which is likey related to his intravascular volume - will provide hydration as above follow in AM - rest of biliary labs are normal - CK 788 will repeat in AM. Admission and Anticipated Discharge Date Admission Date: March 18, 2022 Subjective 56 yo male reports feeling well. Earlier today he was dizzy and this lasted for hours. However after the cardiac cath, he no longer has any dizziness. Patient currently is refusing MRI of head. Review of Systems Review of Systems: All systems reviewed & are unremarkable except as noted in HPI & below Physical Exam Physical Exam: General: awake, alert, no apparent distress Head: Normocephalic, atraumatic ENT: PERRL, EOMI, no pharyngeal exudate, mucous membranes moist Neuro: AAO x 3, speech clear and appropriate, strength intact bilaterally 5/5, sensation intact and equal all extremities and dermatomes, no pronator drift Chest: equal rise and fall of the chest, no accessory muscle use, no heaves or thrills, Clear to auscultation, on room air, Cardiac: Regular rate and rhythm, telemetry reviewed-NSR, skin warm dry, cap refill <3 seconds, peripheral pulses +2 no JVD, Grade II systolic murmur, no edema GI: NABS x 4 quadrants, soft, nontender to palpation, no rebound, guarding or tenderness : Spontaneously voiding, no pain, no CVA tenderness, Extremities: Normal inspection, no peripheral edema or erythema, calfs n ontender to palpation Psych: Normal mood and affect Skin: no rash or erythema Results & Data Results & Data ([facility]) Vital Signs (Past 12 Hours) Vital Signs Temp Pulse Resp BP BP Pulse Ox O2 Del Method 03/19/22 20:00 36.5 C 74 18 123/81 97 Room Air 03/19/22 19:00 36.4 C L 63 18 128/84 94 Room Air 03/19/22 18:00 67 18 112/77 96 03/19/22 17:00 71 18 119/82 95 03/19/22 16:00 77 18 112/43 L 95 03/19/22 15:30 77 18 109/75 95 03/19/22 15:00 36.5 C 73 18 116/77 94 03/19/22 14:45 64 18 116/71 99 Room Air 03/19/22 14:30 62 18 107/73 97 Room Air 03/19/22 14:15 63 18 113/73 98 Room Air 03/19/22 13:55 65 18 126/82 98 Room Air 03/19/22 11:27 70 16 127/97 98 Room Air PG Care Time/CCT Total # of Minutes Spent Total Time Spent with Patient: Total time spent is greater than 50% in coordination of care (as documented) at patient's floor/unit and/or counseling patient: Coding Level of Care Code 75663 Subseq Hosp Care Lvl 3 Diagnoses Chest pain R07.9 Chest pain type: unspecified CAD (coronary artery disease) I25.10 HTN (hypertension) I10 HLD (hyperlipidemia) E78.5 GERD (gastroesophageal reflux disease) K21.9 CKD (chronic kidney disease) N18.9 Elevated LFTs R79.89 Time Spent (min) 35 (1) Chest pain Chest pain type: unspecified Qualified Code(s): R07.9 - Chest pain, unspecified
--- NOTE | 2022-03-19 21:07 | Electrocardiogram Report ---
Test Reason : Blood Pressure : / mmHG Vent. Rate : 071 BPM Atrial Rate : 071 BPM P-R Int : 174 ms QRS Dur : 110 ms QT Int : 396 ms P-R-T Axes : 053 122 -28 degrees QTc Int : 430 ms Normal sinus rhythm Inferior infarct (cited on or before 18-MAR-2022) Abnormal ECG When compared with ECG of 18-MAR-2022 15:09, (unconfirmed) Questionable change in QRS axis Criteria for Anterior infarct are no longer Present Confirmed by Zaid Herrera ([id number]) on 03/19/2022 9:06:49 PM Referred By: REFERRED SELF Confirmed By:Zaid Herrera
--- NOTE | 2022-03-19 21:15 | Electrocardiogram Report ---
Test Reason : Blood Pressure : / mmHG Vent. Rate : 058 BPM Atrial Rate : 058 BPM P-R Int : 162 ms QRS Dur : 112 ms QT Int : 414 ms P-R-T Axes : 062 095 -50 degrees QTc Int : 406 ms Sinus bradycardia Possible Left atrial enlargement Rightward axis Incomplete right bundle branch block Inferior infarct (cited on or before 18-MAR-2022) Cannot rule out Anterior infarct , age undetermined Abnormal ECG When compared with ECG of 18-MAR-2022 21:22, (unconfirmed) No significant change was found Confirmed by Zaid Herrera ([id number]) on 03/19/2022 9:14:50 PM Referred By: REFERRED SELF Confirmed By:Zaid Herrera
[2022-03-19] MEDS: ZOLPIDEM TARTRATE 10 MG TAB PO SCH (23:15)
[2022-03-20 00:08] LABS: Partial Thromboplastin Ratio 1.9
[2022-03-20 00:14] LABS: Partial Thromboplastin Time 52.8 Seconds (21.0-31.0)
[2022-03-20 05:51] LABS: Basophils # (auto) 0.06 K/uL (0-0.2); Basophils % (auto) 0.8 %; Eosinophils # (auto) 0.23 K/uL (0-0.50); Hematocrit (blood only) 46.5 % (40.1-51.0); Hemoglobin 14.1 g/dl (14.0-18.0); Immature Granulocytes # (auto) 0.02 K/uL (0.00-0.02); Immature Granulocytes % (auto) 0.3 %; Lymphocytes # (auto) 1.28 K/uL (1.2-3.4); Lymphocytes % (auto) 16.8 %; Mean Corpuscular Hemoglobin 22.2 pg (25.0-34.0); Mean Corpuscular Hgb Conc 30.3 g/dL (32.0-36.0); Mean Corpuscular Volume 73.2 fL (80.0-100.0); Mean Platelet Volume 9.7 fL (9.4-12.4); Monocytes # (auto) 0.79 K/uL (0.24-0.82); Monocytes % (auto) 10.4 %; Neutrophils # (auto) 5.23 K/uL (1.4-6.5); Neutrophils % (auto) 68.7 %; Platelet Count 272 K/uL (130-400); RDW Coefficient of Variation 18.8 % (11.5-14.5); RDW Standard Deviation 46.2 fL (36.4-46.3); Red Blood Count 6.35 M/uL (4.63-6.08); White Blood Count 7.61 K/ul (4.8-10.8)
[2022-03-20 06:17] LABS: Est GFR (African American) 64.6 ml/min; Est GFR (Non-African American) 55.8 ml/min; Magnesium 1.6 mg/dl (1.7-2.4); Potassium 4.2 mmol/L (3.5-5.1)
[2022-03-20 06:18] LABS: Partial Thromboplastin Ratio 2.2
[2022-03-20 06:19] LABS: Partial Thromboplastin Time 59.2 Seconds (21.0-31.0)
[2022-03-20] MEDS ORDERED: CLOPIDOGREL BISULFATE 75 MG TAB PO SCH (09:00)
[2022-03-20] MEDS: ATORVASTATIN 40 MG TAB PO SCH (09:12)
[2022-03-20] MEDS: ASPIRIN 81 MG ECTAB PO SCH (09:12)
[2022-03-20] MEDS: ENALAPRIL MALEATE 10 MG TAB PO SCH (09:13)
[2022-03-20] MEDS: carvediloL 6.25 MG TAB PO SCH (09:13)
[2022-03-20] MEDS: PANTOprazole 40 MG TAB PO SCH (09:13)
[2022-03-20] MEDS: FLUTICASONE PROPIONATE NA SPR 16 GM BTL NAE SCH (09:14)
--- NOTE | 2022-03-21 10:21 | Discharge Summary ---
Date of Service March 20, 2022 Admission HPI Per Admitting Provider 56 YOM with medical history of: CAD, Stent, 3V CABG 2019, HTN, HLD. Patient comes to the EMD today for complaints of chest pressure. The patient states that this occurred around 1800 last evening following eating, but was not like a reflux or burning pain. The pain was "boxlike" around his chest and into his upper abdomen with some bloating. This pain got better if he walked around and moved around, and got worse when he would try to lie flat. Patient also states that this is associated with "legs and arm tightening like spasms". He did note that it got better with changing positions leaning forward. He states that when he had his heart attack his pain was all in his neck. He did not have this. He attempted to get up earlier this morning and took his medications at 0200 to see if this would help. He felt a little better and tried to go to work this morning. 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 In the EMD the patient was given 4mg of Morphine, Labetalol for his Blood pressure, and 324mg aspirin. He had an ECG done, and routine blood work to include a HScTNI as well as CXR. 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 He brought his medications with him and has not missed any doses. His HScTNI was elevated to 37 and ECG we have no comparison, but is without ST elevation. Will add on HScTNI now, obtain ECHO now, add on CRP, ESR, CK. Patient COVID test on admisison is: NEGATIVE Principal Diagnosis CAD Discharge Exam General: awake, alert, no apparent distress Head: Normocephalic, atraumatic ENT: PERRL, EOMI, no pharyngeal exudate, mucous membranes moist Neuro: AAO x 3, speech clear and appropriate, strength intact bilaterally 5/5, sensation intact and equal all extremities and dermatomes, no pronator drift Chest: equal rise and fall of the chest, no accessory muscle use, no heaves or thrills, Clear to auscultation, on room air, Cardiac: Regular rate and rhythm, telemetry reviewed-NSR, skin warm dry, cap refill <3 seconds, peripheral pulses +2 no JVD, Grade II systolic murmur, no edema GI: NABS x 4 quadrants, soft, nontender to palpation, no rebound, guarding or tenderness : Spontaneously voiding, no pain, no CVA tenderness, Extremities: Normal inspection, no peripheral edema or erythema, calfs nontender to palpation Psych: Normal mood and affect Skin: no rash or erythema Discharge Data Allergies Allergy/AdvReac Type Severity Reaction Status Date / Time No Known Allergies Allergy Unverified 03/18/22 11:29 Consultations 03/18/22 09:58 ED Decision to Admit Stat 03/18/22 13:11 Consult Cardiology Routine 03/20/22 11:29 Burn CD for patient Routine Procedures Performed Operation Date: 03/19/22 11:00 Actual Procedures p Cath, Left w/Cors Vent Grafts - Tommy Humphrey MD s POBA SGL Vessel - Tommy Humphrey MD s Cineradiography w/Routine Exam - Tommy Humphrey MD Ordered Studies 03/18/22 15:30 CT angio chest dissec wo/w con Stat 03/18/22 19:51 CT head/brain wo con Urgent 03/19/22 08:26 CL Cath Imgs for PACS use only Stat Hospital Course (1) Chest pain: Patient presents with chest pressure ongoing for 17 hours at this time. He is currently without pressure. This changes with position and improves with moving around- which would argue against angina but again we are without comparison of ECG or ECHO. DDX: Cardiac Angina vs. non-cardiac atypical vs. luis/myocarditis vs. pericardial effusion vs. GI - ECHO with no comparison to compare to - with AI, RWMA- will attempt to get records from his PCP/CT surgeon for better comparison - ECG with no comparison but possible [place] depression - CK, CRP, ESR, HScTNI - 37 down to 31 - Pain free at this time - BP could use some adjustment- will give another dose of Labetalol now - He is unsure of any of his doses of medications- will increase Atorvastatin to 40mg - Cardiology consulted- appreciate their input Molder Inflated Ball is Dr. Mcknight -[phone]- expecting fax with last echo results and history. Cardiac cath was completed. Stent placement was unsuccessful. Summary: 1. Severe multivessel coronary artery disease -70% ostial LAD, 50 to 60% mid LAD 80% ostial, 80% mid circumflex. 90% proximal OM1 RCA not well visualized 98% proximal D2 stenosis 2. Widely patent DAINA to LAD, SVG to OM, SVG to PDA 3. Normal intracardiac filling pressure 4. Unsuccessful attempt at PCI of proximal D2 due to inability to pass balloon across mid LAD stenosis. Recommendations: Patient chest pain-free and recommend medical management of CAD. Continue carvedilol 6.25mg PO BID, ASA 81 MG, clopidogrel, ATORVASTATIN 40 MG, RESUME BENZERPIL. Patient is refused MRI to assess dizziness. However, symptoms improved and did not return for the past 24 hours. Will discharge: (2) CAD (coronary artery disease): As above HX stent and 3V CABG done in [place] (3) HTN (hypertension): Improving following Labetolol dose and likely some stress influence - currently 133/95 will follow - Transition his benazapril to equivalent enalaprilat dose - He is unsure if he is taking combo pill with HCTZ- read medications on phone did not mention HCTZ combo - he has some evidence of volume contraction on his labs- so would recommend just NEIL component - LR x1 liter (4) HLD (hyperlipidemia): As above- increase Atrovastatin to 40mg daily (5) GERD (gastroesophageal reflux disease): Continue Pantoprazole (6) CKD (chronic kidney disease): Unsure of his baseline - RN ICU at 1.3 with GFR 58 - follow - avoid further nephrotoxic medications - Continue NEIL (7) Elevated LFTs: mild elevation to his AST and INR again unsure of his baseline- his lipase is 183 which is likey related to his intravascular volume - rest of biliary labs are normal - CK 788 LIKELY SOME RHABDO, IMPROVED TO 400 with fluid. Total Time Total Time Spent Total Time Spent (In Minutes): 35 Discharge Plan Discharge Items Patient Disposition: Home - Self-Care Reason For Visit: CHEST PAIN Discharge Diagnosis: chest pain Activity: Resume your previous activity Non-emergency contact: Primary Care Provider Call non-emergency contact if: you have any medication questions Follow-up/Referrals: PCP,NO [Primary Care Provider] - Diet: Heart Healthy Addtl Attending Provider Instructions: You heart did show signs of stress, but thankfully it does not appear that you had a heart attack. You will be discharged on aspirin, plavix. Please continue tomorrow. Will also increase your cholesterol medications to 40 mg In the morning. If you still have a bunch of 10 mg dose of atorvastatin, then you can take 4 of those. I also sent you 40 mg dose of atorvastatin to the pharmacy. Just remember to only take one tablet of the 40 mg dose when you do. Continue carvedilol but increase to twice a day. Next dose tonight.. Continue your benazepril tomorrow. It was a pleasure. Home Care: * Take your medications exactly as directed. Don't skip doses. * Please take it easy landen the next week. Then return to normal activity when your doctor says it's okay. * Ask your doctor about joining a heart rehabilitation program. * Tell your doctor if you are feeling depressed. Feelings of sadness are common after a heart attack, but it is important that you speak to someone if you are feeling overwhelmed by these feelings. * If you are having chest pain, call 911 for an ambulance. Do NOT drive yourself to the hospital. * Ask your family members to learn CPR. * Learn to take your own blood pressure and pulse. Keep a record of your results. Ask your doctor when you should seek emergency medical attention. He or she will tell you which blood pressure reading is dangerous. Lifestyle Changes: * Maintain a healthy weight. Get help to lose any extra pounds. * Cut back on salt. * Limit canned, dried, packaged, and fast foods. * Don't add salt to your food. * Season foods with herbs instead of salt when you cook. * Break the smoking habit. Enroll in a stop-smoking program to improve your chances of success. * Limit fatty foods. * Ask your doctor about having your lipid levels checked regularly. * Build up your activity according to your doctor's recommendation. * Ask your doctor when it's okay to resume sexual activity. * Tell your doctor about any erectile dysfunction (ED) medication you are taking. Some ED medications are not safe if you take certain heart medications. * Try to manage stress. Follow Up: It is important for you to keep your follow up appointments with your medical provider. Pending Studies at Discharge: No Stand-Alone Forms: My [facility], Smoking Cessation Medications and DC Order Prescriptions: New atorvastatin 40 mg Tablet 40 mg PO QAM Qty: 30 0RF clopidogrel [Plavix] 75 mg tablet 75 mg PO DAILY Qty: 30 0RF Continued aspirin 81 mg tablet,delayed release (DR/EC) 81 mg PO DAILY zolpidem 10 mg tablet 10 mg PO HS pantoprazole 40 mg tablet,delayed release (DR/EC) 40 mg PO DAILY benazepril 20 mg tablet 20 mg PO DAILY Changed carvedilol 6.25 mg tablet 6.25 mg PO BID Qty: 60 0RF Discontinued atorvastatin 10 mg tablet 10 mg PO DAILY Discharge Orders: Discharge Order (Routine); Ordered 03/20/22 Ordered By: Mauro Philippe Admission Data Admit Date/Time: 03/18/22 10:02 Attending Provider: Mauro Philippe Admit Provider: Gt Krueger Primary Care Provider: PCP,NO Other Providers: Gt Krueger ; Petar Aquino Other Interventions: Discharge Summary Assessment (RN) Last Done: 03/20/22 11:40 Coding Level of Care Code D/C DAY MANAGEMENT >30 MINS Diagnoses Chest pain R07.9 Chest pain type: unspecified CAD (coronary artery disease) I25.10 HTN (hypertension) I10 HLD (hyperlipidemia) E78.5 GERD (gastroesophageal reflux disease) K21.9 CKD (chronic kidney disease) N18.9 Elevated LFTs R79.89
--- NOTE | 2022-03-21 18:44 | Electrocardiogram Report ---
Test Reason : Blood Pressure : / mmHG Vent. Rate : 062 BPM Atrial Rate : 062 BPM P-R Int : 164 ms QRS Dur : 126 ms QT Int : 402 ms P-R-T Axes : 061 090 -44 degrees QTc Int : 408 ms Normal sinus rhythm Rightward axis Incomplete right bundle branch block Inferior infarct (cited on or before 18-MAR-2022) Abnormal ECG When compared with ECG of 19-MAR-2022 05:40, No significant change was found Confirmed by Dave Braga ([id number]) on 03/21/2022 6:44:16 PM Referred By: REFERRED SELF Confirmed By:Dave Braga
== END 2022-03-20 12:30 | disposition home or self-care (01) | DRG 287 ==
LOC: ED 08:07 → INTOOBSV 10:02 → EDINP 10:02 → SUATTDRO 10:02 → 2S 13:12
DX: Z79.899 Other long term (current) drug therapy; R79.89 Other specified abnormal findings of blood chemistry; N18.9 Chronic kidney disease, unspecified; R94.5 Abnormal results of liver function studies; I35.0 Nonrheumatic aortic (valve) stenosis; I16.1 Hypertensive emergency; I25.2 Old myocardial infarction; R20.0 Anesthesia of skin; K21.9 Gastro-esophageal reflux disease without esophagitis; Z95.1 Presence of aortocoronary bypass graft; I25.10 Atherosclerotic heart disease of native coronary artery without angina pectoris; Z79.82 Long term (current) use of aspirin; I12.9 Hypertensive chronic kidney disease with stage 1 through stage 4 chronic kidney disease, or unspecified chronic kidney disease; E78.5 Hyperlipidemia, unspecified